=== PATIENT | male | born 1950 | race Caucasian/White ===

== ENCOUNTER 2016-06-16 09:21 | Inpatient (IN) ==
--- NOTE | 2016-06-13 20:52 | Discharge Summary ---
<Sade Cárdenas Jah - Last Filed: 06/15/16 21:17> - Discharge Diagnosis (1) Arthritis of knee, right Priority: Primary Status: Acute (2) BPH (benign prostatic hyperplasia) Priority: Secondary Status: Chronic Qualifiers: Prostatic enlargement morphology: unspecified morphology Lower urinary tract symptom presence: presence of symptoms unspecified Qualified Code(s): N40.0 - Benign prostatic hyperplasia without lower urinary tract symptoms - Discharge Medications Home Medications: ClonazePAM [Klonopin] 0.5 mg PO HS 06/15/15 [History] Dextroamphetamine/Amphetamine [Adderall Xr 30 mg Capsule] 30 mg PO DAILY [History] Finasteride [Proscar] 5 mg PO DAILY 06/15/15 [History] Gabapentin [Neurontin] 1,200 mg PO TID 06/15/15 [History] Meloxicam [Mobic] 15 mg PO DAILY PRN 06/15/15 [History] Oxybutynin Chloride [Ditropan Xl] 5 mg PO QPM 06/15/15 [History] Tamsulosin HCl [Flomax] 0.4 mg PO QPM 06/15/15 [History] Testosterone [Androgel] 3 appl TD DAILY 06/15/15 [History] Aspirin Enteric Coated [Aspirin EC] 325 mg PO DAILY #21 tablet.dr 06/15/16 [Rx] HYDROcodone/Acet 5/325 mg [[place] 5-325 mg] 1 - 2 tab PO Q6H PRN #40 tablet 06/15 [Rx] Escitalopram [Lexapro] 20 mg PO HS 06/16/16 [History] Allergies/Adverse Reactions: Allergies Oxycodone Adverse Reaction (Verified 06/16/16 11:04) Headache Primary care physician: Clarissa Heard - Patient Status Disposition: Transfer Inpatient Rehab Fac Condition: Good - Discharge Instructions Follow Up With: Clarissa Heard, TITLE CLERK [Primary Care Provider] - - Hospital Course Hospital course: Mr. De is a 65 year old male - Time Spent with Patient Total time spent providing and/or coordinating discharge services: <El Donovan - Last Filed: 06/18/16 06:52> Date of Encounter: 06/18/16 Time of Encounter: 06:52 - Discharge Diagnosis (1) Arthritis of knee, right Priority: Primary Status: Acute (2) BPH (benign prostatic hyperplasia) Priority: Secondary Status: Chronic Qualifiers: Prostatic enlargement morphology: unspecified morphology Lower urinary tract symptom presence: presence of symptoms unspecified Qualified Code(s): N40.0 - Benign prostatic hyperplasia without lower urinary tract symptoms Primary care physician: Clarissa Heard - Patient Status Functional capacity at discharge: uses cane/walker Overall status at discharge: patient is progressing back to baseline - Hospital Course Hospital course: Mr. De is a 65 year old male The patient had an uneventful postoperative course. They received antibiotics and physical therapy and were discharged in stable condition. There will follow -up in the office in 2 weeks. Aspirin DVT prophylaxis - Time Spent with Patient Total time spent providing and/or coordinating discharge services:
[2016-06-16] MEDS ORDERED: Albuterol 2.5 MG/3 ML NEBULIZER IH ONE (09:45)
[2016-06-16] MEDS ORDERED: Vancomycin 1,000 MG in D5% in Water 250 ML IVPB ONE (09:45)
[2016-06-16] MEDS ORDERED: Lidocaine 1% 20 ML MDV ID ONE (09:45)
[2016-06-16] MEDS: Ringers Solution, Lactated 1,000 ML IVC SCH ×2 (10:05→13:58)
[2016-06-16] MEDS ORDERED: Famotidine 20 MG/2 ML VIAL IVP ONE (10:11)
--- NOTE | 2016-06-16 10:17 | History & Physical Report ---
Date of Encounter: 06/16/16 Time of Encounter: 10:17 24 Hour HP Update - Instructions Instructions: If the History and Physical is less than 30 days old and was completed prior to A.M. admission and or procedure and has NOT been updated on calendar day of procedure please complete this update prior to performing procedure. - Update Patient reports changes in Medical Condition: No Changes in assessment/condition: No Changes in Medication: No Preop tests/diagnostics Reviewed: Yes Surgery Remains Indicated: Yes Consent for Planned Operative Procedure(s) Verified: Yes - Pre-Operative Checklist Preoperative Checklist Indicated: No Prophylactic Antibiotic Ordered: Yes Is VTE Prophylaxis Indicated?: Yes
--- NOTE | 2016-06-16 10:22 | Anesthesia Evaluation PreOp ---
Date of Encounter: 06/16/16 Time of Encounter: 10:20 - Past History Planned Operation: Rt TKA Cardiac History: Denies any Significant Hx Pulmonary History: Smoker WHARF TENDER History: Denies Any Significant HX Other Medical History: Other (Depression) Anesthesia History: No Prior Anesthetic Complications Alcohol Use: occasionally Drug use: marijuana Medications and Allergies Citalopram Hydrobromide [Celexa] 20 mg PO DAILY 06/15/15 [History] ClonazePAM [Klonopin] 0.25 mg PO HS 06/15/15 [History] Dextroamphetamine/Amphetamine [Adderall Xr 30 mg Capsule] 30 mg PO DAILY [History] Finasteride [Proscar] 5 mg PO DAILY 06/15/15 [History] Gabapentin [Neurontin] 600 mg PO TID 06/15/15 [History] Meloxicam [Mobic] 15 mg PO DAILY 06/15/15 [History] Oxybutynin Chloride [Ditropan Xl] 5 mg PO DAILY 06/15/15 [History] Tamsulosin HCl [Flomax] 0.4 mg PO DAILY 06/15/15 [History] Testosterone [Androgel] 3 appl TD DAILY 06/15/15 [History] Aspirin Enteric Coated [Aspirin EC] 325 mg PO DAILY #21 tablet. 06/15/16 [Rx] HYDROcodone/Acet 5/325 mg [[employer] 5-325 mg] 1 - 2 tab PO Q6H PRN #40 tablet 06/15 [Rx] Allergies Oxycodone Adverse Reaction (Verified 06/15/15 15:38) Headache - Meds/Allergy Pre-op Review Medications Reviewed: Yes Allergies Reviewed: Yes Beta Blockers on Current Med List: No Anesthesia Results - Labs Laboratory Tests 06/09/16 06/09/16 15:22 15:26 Hgb 16.2 Hct 45.3 Plt Count 229 Sodium 141 Potassium 4.3 BUN 11 Creatinine 0.80 Anesthesia Exam O2 Sat Height 1.75 m Height 1.75 m Height 1.75 m Weight 74.843 kg Weight 74.843 kg Weight 74.843 kg O2 Sat by Pulse Oximetry 94 O2 Sat by Pulse Oximetry 94 Vital Signs Temp Pulse Resp BP Pulse Ox 98 F 58 16 119/78 94 L 06/16/16 09:49 06/16/16 09:49 06/16/16 09:49 06/16/16 09:49 06/16/16 09:49 Height: 5'9 Weight: 165 lbs NPO (# of Hours): MN Pain Scale: 0 - HEENT Pupil (Motor): Pupils equal, EOMI Mallampati: II Teeth: Normal Oral Opening: Greater than 3 - WHARF TENDER LOC: Oriented WHARF TENDER Motor: Normal RUE, Normal LUE, Normal RLE, Normal LLE, Normal Face WHARF TENDER Sensory: Normal: RUE, LUE, RLE, LLE, Face - Cardiac Rhythm: Regular Murmur: None JVD: No Carotid Bruit: No - Pulmonary Breath Sounds: bilateral Clear Respiratory Effort: Symmetrical Anesthesia Assess/Plan ASA Score: 2 Modified Price Scale for Level of Consciousness: Cooperative, oriented, and tranquil Anesthetic Plan: General, Regional Monitoring Plan: Standard Monitors Recovery Plan: PACU (Discussed GA and RA, agrees to proceed)
[2016-06-16] MEDS ORDERED: *HR* Promethazine 25 MG/ML VIAL IVP PRN (10:29)
[2016-06-16] MEDS ORDERED: Ondansetron 4 MG/2 ML VIAL IVP ONE (10:29)
[2016-06-16] MEDS ORDERED: *HR* Rocuronium Bromide 50 MG/5 ML VIAL ONE (10:41)
[2016-06-16] MEDS ORDERED: Ondansetron 4 MG/2 ML VIAL ONE (10:41)
[2016-06-16] MEDS ORDERED: Lidocaine -MPF 2% 2 ML VIAL ONE (10:41)
[2016-06-16] MEDS ORDERED: Dexamethasone 4 MG/ML VIAL ONE (10:41)
[2016-06-16] MEDS ORDERED: *HR* Propofol 200 MG/20 ML VIAL IVP ONE (10:41)
[2016-06-16] MEDS ORDERED: Lidocaine -MPF 4% 5 ML AMPUL ONE (10:41)
[2016-06-16] MEDS ORDERED: *HR* Midazolam HCl 2 MG/2 ML VIAL ONE (10:41)
[2016-06-16] MEDS ORDERED: *HR* FentaNYL (PF) 100 MCG/2 ML VIAL ONE (10:41)
[2016-06-16] MEDS ORDERED: *HR* Succinylcholine 200 MG/10 ML VIAL IVP ONE (10:41)
[2016-06-16] MEDS ORDERED: Ketorolac 30 MG/ML VIAL ONE (10:46)
[2016-06-16] MEDS ORDERED: Tetracaine/PF 20 MG/2 ML AMPUL SPINA ONE (11:30)
--- NOTE | 2016-06-16 11:56 | Anesthesia Procedures ---
Date of Encounter: 06/16/16 Time of Encounter: 10:20 Procedures: Anesthesia - Nerve Block Procedure Date: 06/16/16 Time: 11:35 Pre-op Diagnosis: Rt Knee Arthropathy Surgical Procedure: Rt TKA Checklist: Correct Patient Identifier Correct side: Right Blood Thinner: No Monitor Applied: EKG, BP, Pulse Oximetry Supplemental Oxygen via Nasal Cannula (L/min): 2 Sedation: Versed (mg): 2 Sedation: Fentanyl (mcg): 50 Indication: Post Op Analgesia Pre-op Neuro Deficits: No Block Type: Femoral, Other (IPACK) Catheter placed: No Depth at skin (cm): 2 Sterile Technique: Yes Ultrasound used: Yes Anatomy identified: Yes Visual spread of Local: Yes Neuro Stimulation: Yes Nerve Stimulator Range: >0.4 - 0.6 mA Blood on Needle Aspiration: No Smooth Injection of Local: Yes Pain with Injection of Local: No Prep: Chlorhexadine Needle: 22 x 50 mm Stimuplex Local: 0.25% Bupivicaine w/Clonidine 20 mcg/cc, Tetracaine (20), Ropivacaine ( 0.5%) Volume (cc): 30 Number of Attempts: 1 Complications: None/effective block Vitals: Vital Signs/O2 Sat/Glucose, Most Current Temp Pulse Resp BP Pulse Ox 06/16/16 11:26 57 139/85 96 06/16/16 10:17 16 119/78 94 L 06/16/16 09:49 98 F 58 16 119/78 94 L
[2016-06-16] MEDS ORDERED: Bupivacaine/Clonidine Syringe 1 EACH SYRINGE ONE (12:28)
--- NOTE | 2016-06-16 12:43 | Orthopedic Operative Note ---
Date of procedure: 06/16/16 Pre-op diagnosis: Right knee arthritis Post-op diagnosis: same Procedure: Procedure: Right Total knee replacement Estimated blood loss: 200 cc Hardware: Arthrex Femur: 7 Tibia: 7 PS insert: 12 Patella: 40 Exam Under anesthesia: Varus alignment external rotation deformity loss. Loss of full extension 15 degrees Procedural Notes: Grade 4 arthritic changes medial compartment patellofemoral joint. Evidence of previous quadricep tendon repair with retained suture and some osteophytes proximally. Operative procedure: The patient was brought to the operating room and placed on the operating room table. After general anesthesia was administered the operative knee was examined. Findings were noted in the exam under anesthesia. The operative extremity was prepped and draped in sterile surgical fashion. The patient received IV antibiotics prior to skin incision. A standard midline incision was made centered over the patella. The incision was made through the skin and subcutaneous tissue. A medial parapatellar tendon approach was performed. Care was taken to preserve tissue along the medial aspect of the patella. And to protect the patella tendon. The deep MCL was released off the medial tibia. The infra patella fat pad was excised. Patient noted to have evidence of previous quadricep tendon repair with retained suture fragmentation of the proximal area patella. Small fragments were removed without disrupting the tendon. Knee was brought into flexion. Patient noted to have grade 4 arthritic changes medial compartment and patellofemoral joint. The entry hole was made for the intramedullary femoral guide. The guide was seated in 6 degrees of valgus. Anterior cut was made followed by the distal cut. The ACL the PCL the medial and the lateral menisci were excised. The tibia was subluxed forward. The entry hole was made for the intramedullary tibial guide. Guide was seated to resect 2 mm off the more abnormal side. The knee was brought into flexion the distal femur was sized 7. The femoral guide was seated , the anterior cut was made followed by the posterior condylar cut, followed by the chamfer cuts. The finishing guide was seated the box cut was made and the lug holes were drilled. The tibia was sized 7, the tibial tray was seated and prepared with the large drill followed by the fin cutter. Trial reduction revealed full extension no varus valgus instability with the appropriate 12 PS Usha. The patella was everted and cut was made at the level of the insertion of the quadriceps and patella tendon. The patella was sized 40 the guide was seated and the lug holes are drilled. Trial reduction revealed excellent patella tracking. All trial components were removed all bony surfaces were irrigated. The tibia was cemented first followed by the femur. The 12 PS Usha was seated and the knee was brought into full extension. The patella was cemented and held in place with the patellar holding clamp. After the cement had hardened, the knee sat for 2 minutes with a Betadine saline solution. The knee was then irrigated out with 2 L of pulse irrigation. The extensor mechanism was closed with #2 FiberWire suture and #2 PDS suture. The subcutaneous tissue was then irrigated and closed deep with #1 PDS suture superficially with 0 PDS suture and skin was closed with skin moncho. The patient was then placed in a sterile dressing and a postoperative brace extubated and transferred to recovery room in stable condition. Anesthesia: GETA Surgeon: El Donovan Condition: stable Disposition: PACU
[2016-06-16] MEDS: *HR* HYDROmorphone (PF) 1 MG/ML SYRINGE IVP PRN ×2 (13:32→13:56)
[2016-06-16 13:46] LABS: Hematocrit 41.5 % (37.5-50.1)
[2016-06-16 13:47] LABS: Hemoglobin 14.3 g/dL (12.9-16.9)
--- NOTE | 2016-06-16 14:10 | Anesthesia Evaluation Post Op ---
Date of Encounter: 06/16/16 Time of Encounter: 14:10 - Vital Signs Vital Signs: Vital Signs/O2 Sat/Glucose, Most Current Temp Pulse Resp BP Pulse Ox 06/16/16 13:56 67 16 100/74 98 06/16/16 13:46 97.4 F L 69 16 88/61 97 06/16/16 13:36 68 16 100/64 100 06/16/16 13:26 72 16 112/82 100 06/16/16 13:16 98.4 F 78 16 76/54 100 06/16/16 11:26 57 139/85 96 06/16/16 10:17 16 119/78 94 L - Lungs Lungs: Clear Ascult./Percussion - Airway Airway: Non-obstructed - Cardiovascular Regular Rate - Mental Status Mental Status: Alert & Oriented, Answers Appropriately - Pain Pain Scale: 0 - Nausea Vomiting Nausea Vomiting: Not Present - Hydration Hydration: Ice chips, Has not voided - Discharge PostOp Status: Transfer Patient to floor
[2016-06-16] MEDS ORDERED: Sennosides 8.6 MG TABLET PO PRN (14:35)
[2016-06-16] MEDS ORDERED: Ondansetron 4 MG/2 ML VIAL IVP PRN (14:35)
[2016-06-16] MEDS ORDERED: Naloxone 0.4 MG/ML INJ IVP PRN (14:35)
[2016-06-16] MEDS ORDERED: Ringers Solution, Lactated 1,000 ML IVC SCH (14:35)
[2016-06-16] MEDS ORDERED: Acetaminophen 325 MG TABLET PO PRN (14:35)
[2016-06-16] MEDS ORDERED: Temazepam 15 MG CAPSULE PO PRN (14:35)
[2016-06-16] MEDS ORDERED: MOM Conc 10 ML UD.LIQ PO PRN (14:35)
[2016-06-16] MEDS: ceFAZolin 2,000 MG in D5% in Water 100 ML IVPB SCH ×2 (16:09→23:04)
[2016-06-16] MEDS: Gabapentin 400 MG CAPSULE PO SCH ×2 (16:09→20:42)
[2016-06-16] MEDS ORDERED: *HR* Enoxaparin 30 MG/0.3 ML SYRINGE SQ SCH (18:00)
[2016-06-16] MEDS: *HR* Enoxaparin 30 MG/0.3 ML SYRINGE SQ SCH (18:18)
[2016-06-16] MEDS: clonazePAM 0.5 MG TABLET PO SCH (20:42)
[2016-06-16] MEDS: *HR* HYDROcodone/Acet 5/325 mg TABLET PO PRN (21:01)
[2016-06-17] MEDS: *HR* Enoxaparin 30 MG/0.3 ML SYRINGE SQ SCH ×3 (05:24→18:28)
[2016-06-17] MEDS: *HR* HYDROcodone/Acet 5/325 mg TABLET PO PRN ×4 (05:24→18:27)
--- NOTE | 2016-06-17 06:39 | Orthopedics Progress Note ---
Date of Encounter: 06/17/16 Time of Encounter: 06:39 - Assessment and Plan (1) Arthritis of knee, right Current Visit: Yes Status: Acute (2) BPH (benign prostatic hyperplasia) Current Visit: Yes Status: Chronic Qualifiers: Prostatic enlargement morphology: unspecified morphology Lower urinary tract symptom presence: presence of symptoms unspecified Qualified Code(s): N40.0 - Benign prostatic hyperplasia without lower urinary tract symptoms Subjective Interval history: pt doing well no complaints afvss operative extremity NVI dressing c/d/i calves nt continue postop care Hb 14 Objective Vital signs: Vital Signs Temp Pulse Resp BP Pulse Ox 06/17/16 04:00 99.0 F 86 17 114/63 96 06/17/16 00:00 99.2 F 80 16 81/52 95 06/16/16 20:25 98.0 F 65 17 121/66 98 06/16/16 17:42 66 18 120/69 98 06/16/16 17:25 98.0 F 68 17 125/72 97 06/16/16 16:35 97.9 F 65 18 118/68 96 06/16/16 15:36 97.6 F 66 18 120/69 98 06/16/16 15:01 97.6 F 65 17 120/73 98 06/16/16 14:30 97.7 F 64 17 124/66 98 06/16/16 14:06 97.4 F L 65 16 121/74 98 06/16/16 13:56 67 16 100/74 98 06/16/16 13:46 97.4 F L 69 16 88/61 97 06/16/16 13:36 68 16 100/64 100 06/16/16 13:26 72 16 112/82 100 06/16/16 13:16 98.4 F 78 16 76/54 100 06/16/16 11:26 57 139/85 96 06/16/16 10:17 16 119/78 94 L 06/16/16 09:49 98 F 58 16 119/78 94 L Intake and Output 06/16/16 06/16/16 06/17/16 15:59 23:59 07:59 Intake Total 1250 / 1250 100 / 100 100 / 100 Output Total 200 / 200 325 / 325 325 / 325 Balance 1050 / 1050 -225 / -225 -225 / -225 Intake: IV Fluids 1250 / 1250 100 / 100 100 / 100 Lactated Ringers 1,000 ML 1000 / 1000 @ 75 mls/hr IVC .[id number] [facility] Rx#:[id number] Ancef 2,000 MG In 100 / 100 100 / 100 Dextrose 5% 100 ML @ 200 mls/hr IVPB Q8HR [facility] Rx#: [id number] Vancocin 1,000 MG In 250 / 250 Dextrose 5% 250 ML @ 167 mls/hr IVPB ONCE ONE Rx#: [id number] Output: Urine 325 / 325 325 / 325 Estimated Blood Loss 200 / 200 Other: Weight 74.843 kg - Labs CBC & BMP: 06/16/16 13:33 - VTE Documentation of Mechanical Device: Venous foot pump, device Consult Discharge Plan - Plan Referrals: Clarissa Heard, MAR[employer] OPERATIONS COORDINATOR [Primary Care Provider] -
[2016-06-17 06:49] LABS: Hemoglobin 12.5 g/dL (12.9-16.9)
[2016-06-17 06:59] LABS: BUN/Creatinine Ratio 14 (6-26); Blood Urea Nitrogen 11 mg/dL (8-26); Calcium 7.7 mg/dL (8.6-10.8); Carbon Dioxide 20 mEq/L (19-29); Chloride 108 mEq/L (98-109); Glucose 116 mg/dL (70-99); Osmolality,Calculated 286 (280-300); Potassium 3.5 mEq/L (3.5-4.5); Sodium 138 mEq/L (136-145); eGFR For African Americans > 60 (> 60); eGFR For Non-African Americans > 60 (> 60)
[2016-06-17] MEDS: TESTOSTERONE APPL TP SCH (09:02)
[2016-06-17] MEDS: Finasteride 5 MG TABLET PO SCH (09:02)
[2016-06-17] MEDS: Gabapentin 400 MG CAPSULE PO SCH ×3 (09:02→19:59)
[2016-06-17] MEDS: (Dextroamphetamine/Amphetamine [Adderall Xr 30 Mg Cap PO SCH (09:02)
[2016-06-17] MEDS: clonazePAM 0.5 MG TABLET PO SCH (19:59)
[2016-06-17] MEDS: *HR* HYDROmorphone (PF) 1 MG/ML SYRINGE IVP PRN (20:00)
[2016-06-18] MEDS: *HR* HYDROcodone/Acet 5/325 mg TABLET PO PRN ×2 (00:29→06:17)
[2016-06-18] MEDS: *HR* HYDROmorphone (PF) 1 MG/ML SYRINGE IVP PRN ×2 (01:22→09:26)
[2016-06-18] MEDS: *HR* Enoxaparin 30 MG/0.3 ML SYRINGE SQ SCH (06:15)
--- NOTE | 2016-06-18 06:53 | Orthopedics Progress Note ---
Date of Encounter: 06/18/16 Time of Encounter: 06:52 - Assessment and Plan (1) Arthritis of knee, right Current Visit: Yes Status: Acute (2) BPH (benign prostatic hyperplasia) Current Visit: Yes Status: Chronic Qualifiers: Prostatic enlargement morphology: unspecified morphology Lower urinary tract symptom presence: presence of symptoms unspecified Qualified Code(s): N40.0 - Benign prostatic hyperplasia without lower urinary tract symptoms Subjective Interval history: pt doing well no complaints afvss operative extremity NVI dressing c/d/i calves nt continue postop care hematocrit 36 discharged today Objective Vital signs: Vital Signs Temp Pulse Resp BP Pulse Ox 06/18/16 06:23 98.1 F 70 14 133/85 96 06/18/16 01:00 99.4 F 91 17 117/67 92 L 06/17/16 19:58 98.1 F 88 18 121/81 94 L 06/17/16 14:56 98.1 F 71 14 135/76 96 06/17/16 11:14 98.2 F 69 18 117/65 96 06/17/16 10:57 98.5 F 81 18 115/72 95 06/17/16 07:09 98.1 F 70 16 102/54 92 L Intake and Output 06/17/16 06/17/16 06/18/16 15:59 23:59 07:59 Intake Total 480 / 480 400 / 400 725 / 725 Output Total 350 / 350 750 / 750 Balance 480 / 480 50 / 50 -25 / -25 Intake: Oral 480 / 480 400 / 400 725 / 725 Output: Urine 350 / 350 750 / 750 Other: Meal Breakfast Percent of Meal Consumed 100% Blood Glucose* 184 - Labs CBC & BMP: 06/17/16 06:02 06/17/16 06:02 Labs: Abnormal lab results Hgb 12.5 g/dL (12.9-16.9) L D 06/17/16 06:02 Hct 36.0 % (37.5-50.1) L 06/17/16 06:02 Glucose 116 mg/dL (70-99) H 06/17/16 06:02 Calcium 7.7 mg/dL (8.6-10.8) L 06/17/16 06:02 - VTE Documentation of Mechanical Device: Venous foot pump, device Consult Discharge Plan - Plan Referrals: Clarissa Heard DORIS [Primary Care Provider] -
[2016-06-18] MEDS: Gabapentin 400 MG CAPSULE PO SCH (09:27)
[2016-06-18] MEDS: TESTOSTERONE APPL TP SCH (09:27)
[2016-06-18] MEDS: Finasteride 5 MG TABLET PO SCH (09:27)
[2016-06-18] MEDS: (Dextroamphetamine/Amphetamine [Adderall Xr 30 Mg Cap PO SCH (09:27)
[2016-06-18 11:39] VITALS: BP 127/64
== END 2016-06-18 12:30 | DRG 470 ==
LOC: SAMDAY 09:21 → 3NENU 14:35
PROVIDERS: ADMIT Orthopaedic Surgery; ATTEND Orthopaedic Surgery

== ENCOUNTER 2019-12-26 09:08 | Inpatient (IN) ==
[2019-12-26 10:06] LABS: Hemoglobin 13.1 g/dL (12.9-16.9); Mean Corpuscular HGB Conc 35.4 g/dL (31.6-35.5); Mean Corpuscular Volume 87.7 fL (83.0-100.0); Platelet Count 228 K/mcL (140-400); Red Blood Count 4.22 M/mcL (4.19-5.50); Red Cell Distribution Width 13.2 % (11.5-14.5); White Blood Count 3.6 K/mcL (4.3-11.1)
[2019-12-26 10:20] LABS: Bacteria,Urine Few per hpf (None-Few); Bilirubin,Urine Negative (Negative); Blood,Urine Negative (Negative); Clarity,Urine Clear (Clear); Color,Urine Yellow (Yellow); Glucose,Urine (UA) Normal (Normal); Ketones,Urine 60 mg/dL (Negative); Leukocyte Esterase,Urine Negative (Negative); Mucus,Urine Few per lpf (None-Few); Nitrite,Urine Negative (Negative); PH,Urine 6.5 pH Units (5.0-8.0); Protein,Urine 50 mg/dL (Neg-Trace); RBC,Urine 0-3 per hpf (0-3); Specific Gravity,Urine 1.023 (1.010-1.025); Squamous Epithelial Cell,Urine Few per hpf (None-Few)
[2019-12-26 10:27] LABS: INR 1.3; Prothrombin Time 14.2 Seconds (9.4-12.1)
[2019-12-26 10:28] LABS: Alanine Aminotransferase 13 Units/L (7-52); Albumin 3.3 g/dL (3.5-5.7); Albumin/Globulin Ratio 1.4 (1.1-2.2); Alkaline Phosphatase 47 Units/L (34-104); Aspartate Amino Transferase 23 Units/L (13-39); BUN/Creatinine Ratio 19 (6-26); Bilirubin,Direct 0.1 mg/dL (0.0-0.2); Bilirubin,Indirect 0.5 mg/dL (0.0-1.0); Bilirubin,Total 0.6 mg/dL (0.3-1.0); Blood Urea Nitrogen 10 mg/dL (8-23); C-Reactive Protein 165 mg/L (Less than 10); Carbon Dioxide 24 mEq/L (23-29); Chloride 97 mEq/L (98-107); Globulin 2.4 g/dL (2.4-3.5); Glucose 89 mg/dL (70-105); Osmolality,Calculated 275 (280-300); Potassium 3.2 mEq/L (3.5-5.1); Sodium 133 mEq/L (136-145); Total Protein 5.7 g/dL (6.4-8.9); Troponin I < 0.03 ng/mL (< 0.04); eGFR For African Americans > 60 (> 60); eGFR For Non-African Americans > 60 (> 60)
[2019-12-26 10:30] LABS: Activated Partial Thrombo Time 30.2 Seconds (26.0-36.0)
[2019-12-26 10:33] LABS: Lymphocytes # 0.6 K/mcL (0.6-4.6); Monocytes # 0.5 K/mcL (0.0-1.3); Neutrophils # 2.5 K/mcL (1.6-8.9)
[2019-12-26 10:34] LABS: Platelet Estimate Normal (Normal); Reactive Lymphocytes Present (Not Present)
[2019-12-26] MEDS ORDERED: levoFLOXacin 750 MG/150 ML 750 MG/150 ML BAG IVPB ONE (11:07)
[2019-12-26] MEDS ORDERED: Piperacillin/Tazobactam 3.375 GM in 0.9 % Sodium Chloride Mini Bag 100 ML IVPB ONE (11:07)
[2019-12-26 11:39] LABS: Adenovirus Not Detected (Not Detect); Bordetella Pertussis Not Detected (Not Detect); Chlamydophila pneumoniae Not Detected (Not Detect); Coronavirus 229E Not Detected (Not Detect); Coronavirus HKU1 Not Detected (Not Detect); Coronavirus NL63 Not Detected (Not Detect); Coronavirus OC43 Not Detected (Not Detect); Human Metapneumovirus Not Detected (Not Detect); Human Rhinovirus/Enterovirus Not Detected (Not Detect); Influenza A Subtype 2009 H1 Not Detected (Not Detect); Influenza B Not Detected (Not Detect); Mycoplasma pneumoniae Not Detected (Not Detect); Parainfluenza Virus 1 Not Detected (Not Detect); Parainfluenza Virus 2 Not Detected (Not Detect); Parainfluenza Virus 3 Not Detected (Not Detect); Parainfluenza Virus 4 Not Detected (Not Detect); Respiratory Syncytial Virus Not Detected (Not Detect)
[2019-12-26 11:46] LABS: SARS-CoV-2 DETECTED (Not Detect)
[2019-12-26] MEDS ORDERED: Vancomycin 1,250 MG/262.5 ML IV.SOLN IVPB ONE (12:00)
[2019-12-26] MEDS ORDERED: Naloxone 0.4 MG/ML INJ IVP PRN (12:09)
[2019-12-26] MEDS ORDERED: Ondansetron 4 MG/2 ML VIAL IVP PRN (12:09)
[2019-12-26] MEDS ORDERED: Dexamethasone 4 MG/ML VIAL IVP SCH (12:15)
[2019-12-26] MEDS ORDERED: *HR* HYDROcodone/Acet 5/325 mg TABLET PO ONE (12:57)
[2019-12-26] MEDS: *HR* Heparin 5,000 UNIT/ML VIAL SQ SCH (17:07)
[2019-12-27] MEDS ORDERED: carBAMazepine 200 MG TABLET PO ONE
[2019-12-27] MEDS ORDERED: Gabapentin 300 MG CAPSULE PO ONE (00:06)
[2019-12-27] MEDS ORDERED: Vancomycin 1,250 MG/262.5 ML IV.SOLN IVPB SCH (01:00)
[2019-12-27] MEDS: *HR* HYDROcodone/Acet 5/325 mg TABLET PO PRN ×3 (05:10→23:11)
[2019-12-27] MEDS: *HR* Heparin 5,000 UNIT/ML VIAL SQ SCH ×2 (05:11→16:28)
[2019-12-27 06:42] LABS: Basophils % 0.3 %; Hematocrit 36.9 % (37.5-50.1); Hemoglobin 12.6 g/dL (12.9-16.9); Immature Granulocytes % 1.2 % (0-4); Lymphocytes # 0.9 K/mcL (0.6-4.6); Lymphocytes % 26.2 %; Mean Corpuscular HGB Conc 34.1 g/dL (31.6-35.5); Mean Corpuscular Hemoglobin 30.7 pg (28.0-33.3); Mean Corpuscular Volume 89.8 fL (83.0-100.0); Mean Platelet Volume 9.3 fL (9.4-12.4); Monocytes # 0.7 K/mcL (0.0-1.3); Monocytes % 19.7 %; Neutrophils # 1.8 K/mcL (1.6-8.9); Platelet Count 267 K/mcL (140-400); Red Blood Count 4.11 M/mcL (4.19-5.50); Red Cell Distribution Width 12.9 % (11.5-14.5); Segmented Neutrophils % 52.6 %; White Blood Count 3.4 K/mcL (4.3-11.1)
[2019-12-27 07:03] LABS: Alanine Aminotransferase 11 Units/L (7-52); Albumin 3.1 g/dL (3.5-5.7); Albumin/Globulin Ratio 1.2 (1.1-2.2); Alkaline Phosphatase 46 Units/L (34-104); Aspartate Amino Transferase 23 Units/L (13-39); BUN/Creatinine Ratio 17 (6-26); Bilirubin,Total 0.5 mg/dL (0.3-1.0); Blood Urea Nitrogen 10 mg/dL (8-23); Calcium 7.9 mg/dL (8.6-10.3); Carbon Dioxide 24 mEq/L (23-29); Chloride 98 mEq/L (98-107); Globulin 2.6 g/dL (2.4-3.5); Glucose 83 mg/dL (70-105); Osmolality,Calculated 274 (280-300); Potassium 3.3 mEq/L (3.5-5.1); Sodium 133 mEq/L (136-145); Total Protein 5.7 g/dL (6.4-8.9); eGFR For African Americans > 60 (> 60); eGFR For Non-African Americans > 60 (> 60)
[2019-12-27] MEDS ORDERED: levoFLOXacin 750 MG/150 ML 750 MG/150 ML BAG IVPB SCH (09:00)
[2019-12-27] MEDS: ADDERALL 30 MG PO SCH (09:28)
[2019-12-27] MEDS: Gabapentin 400 MG CAPSULE PO SCH ×3 (09:28→20:27)
[2019-12-27] MEDS: *HR* HYDROcodone/Acet 10/325 mg TABLET PO PRN (10:30)
[2019-12-27] MEDS: Dexamethasone 4 MG/ML VIAL IVP SCH (11:32)
[2019-12-27] MEDS: Piperacillin/Tazobactam 3.375 GM in 0.9 % Sodium Chloride Mini Bag 100 ML IVPB SCH ×2 (16:28→23:10)
[2019-12-27] MEDS: clonazePAM 0.5 MG TABLET PO SCH (20:26)
[2019-12-27] MEDS: CarBAMazepine XR (12 hr) 100 MG TAB PO SCH (20:26)
[2019-12-28 02:41] LABS: Basophils % 0.7 %; Eosinophils % 0.2 %; Hematocrit 40.6 % (37.5-50.1); Hemoglobin 13.7 g/dL (12.9-16.9); Lymphocytes # 1.2 K/mcL (0.6-4.6); Mean Corpuscular HGB Conc 33.7 g/dL (31.6-35.5); Mean Corpuscular Hemoglobin 30.4 pg (28.0-33.3); Mean Corpuscular Volume 90.2 fL (83.0-100.0); Mean Platelet Volume 8.8 fL (9.4-12.4); Monocytes # 0.8 K/mcL (0.0-1.3); Monocytes % 17.4 %; Neutrophils # 2.5 K/mcL (1.6-8.9); Platelet Count 268 K/mcL (140-400); Red Cell Distribution Width 13.2 % (11.5-14.5); Segmented Neutrophils % 54.7 %; White Blood Count 4.6 K/mcL (4.3-11.1)
[2019-12-28 03:03] LABS: BUN/Creatinine Ratio 22 (6-26); Blood Urea Nitrogen 14 mg/dL (8-23); Calcium 8.2 mg/dL (8.6-10.3); Carbon Dioxide 22 mEq/L (23-29); Chloride 102 mEq/L (98-107); Glucose 97 mg/dL (70-105); Osmolality,Calculated 282 (280-300); Potassium 3.9 mEq/L (3.5-5.1); Sodium 136 mEq/L (136-145); eGFR For African Americans > 60 (> 60); eGFR For Non-African Americans > 60 (> 60)
[2019-12-28] MEDS ORDERED: 0.9 % Sodium Chloride 250 ML ONE (05:32)
[2019-12-28] MEDS: *HR* HYDROcodone/Acet 5/325 mg TABLET PO PRN (05:39)
[2019-12-28] MEDS: *HR* Heparin 5,000 UNIT/ML VIAL SQ SCH ×2 (05:40→18:16)
[2019-12-28] MEDS: ADDERALL 30 MG PO SCH (08:03)
[2019-12-28] MEDS: Gabapentin 400 MG CAPSULE PO SCH ×3 (09:14→20:55)
[2019-12-28] MEDS: Piperacillin/Tazobactam 3.375 GM in 0.9 % Sodium Chloride Mini Bag 100 ML IVPB SCH (09:14)
[2019-12-28] MEDS: Dexamethasone 4 MG/ML VIAL IVP SCH (09:14)
[2019-12-28] MEDS ORDERED: Morphine Sulfate 2 MG/ML SYRINGE IVP ONE (11:10)
[2019-12-28] MEDS ORDERED: cefTRIAXone 1,000 MG in 0.9 % Sodium Chloride Mini Bag 100 ML IVPB ONE ×2 (12:24→15:00)
[2019-12-28] MEDS: *HR* HYDROcodone/Acet 10/325 mg TABLET PO PRN (18:16)
[2019-12-28] MEDS: CarBAMazepine XR (12 hr) 100 MG TAB PO SCH (20:56)
[2019-12-28] MEDS: clonazePAM 0.5 MG TABLET PO SCH (20:56)
[2019-12-29] MEDS: *HR* HYDROcodone/Acet 10/325 mg TABLET PO PRN ×2 (01:26→09:55)
[2019-12-29] MEDS ORDERED: 0.9 % Sodium Chloride 250 ML ONE (01:44)
[2019-12-29] MEDS: *HR* Heparin 5,000 UNIT/ML VIAL SQ SCH ×2 (04:39→17:35)
[2019-12-29 05:42] LABS: Hematocrit 35.3 % (37.5-50.1); Mean Corpuscular HGB Conc 33.7 g/dL (31.6-35.5); Mean Corpuscular Hemoglobin 30.7 pg (28.0-33.3); Mean Platelet Volume 8.9 fL (9.4-12.4); Platelet Count 314 K/mcL (140-400); Red Blood Count 3.88 M/mcL (4.19-5.50); Red Cell Distribution Width 13.2 % (11.5-14.5); White Blood Count 4.7 K/mcL (4.3-11.1)
[2019-12-29 05:43] LABS: Hemoglobin 11.9 g/dL (12.9-16.9)
[2019-12-29 06:07] LABS: BUN/Creatinine Ratio 20 (6-26); Blood Urea Nitrogen 11 mg/dL (8-23); Calcium 8.2 mg/dL (8.6-10.3); Carbon Dioxide 25 mEq/L (23-29); Chloride 100 mEq/L (98-107); Glucose 90 mg/dL (70-105); Magnesium 1.7 mg/dL (1.6-2.6); Osmolality,Calculated 277 (280-300); Phosphorous 2.9 mg/dL (2.7-4.5); Potassium 3.6 mEq/L (3.5-5.1); Sodium 134 mEq/L (136-145); eGFR For African Americans > 60 (> 60); eGFR For Non-African Americans > 60 (> 60)
[2019-12-29 09:21] LABS: C-Reactive Protein 98 mg/L (Less than 10)
[2019-12-29] MEDS: Dexamethasone 4 MG/ML VIAL IVP SCH (09:54)
[2019-12-29] MEDS: Gabapentin 400 MG CAPSULE PO SCH ×3 (09:55→19:34)
[2019-12-29] MEDS: levoFLOXacin 750 MG TABLET PO SCH (09:55)
[2019-12-29] MEDS: Ipratropium 1 PUFF INHALER IH SCH ×3 (09:59→22:06)
[2019-12-29] MEDS: ADDERALL 30 MG PO SCH (10:00)
[2019-12-29] MEDS ORDERED: cefTRIAXone 1,000 MG in 0.9 % Sodium Chloride Mini Bag 100 ML IVPB SCH (12:00)
[2019-12-29 12:28] LABS: Hematocrit 37.4 % (37.5-50.1); Hemoglobin 12.7 g/dL (12.9-16.9)
[2019-12-29] MEDS: *HR* HYDROcodone/Acet 5/325 mg TABLET PO PRN (15:24)
[2019-12-29] MEDS: CarBAMazepine XR (12 hr) 100 MG TAB PO SCH (19:34)
[2019-12-29] MEDS: clonazePAM 0.5 MG TABLET PO SCH (19:35)
[2019-12-30] MEDS: Acetaminophen 325 MG TABLET PO PRN ×2 (00:19→15:27)
[2019-12-30] MEDS: *HR* HYDROcodone/Acet 10/325 mg TABLET PO PRN ×2 (03:30→17:32)
[2019-12-30] MEDS: Ipratropium 1 PUFF INHALER IH SCH ×4 (03:50→21:30)
[2019-12-30] MEDS ORDERED: 0.9 % Sodium Chloride 250 ML ONE (04:13)
[2019-12-30 06:33] LABS: Hematocrit 37.2 % (37.5-50.1); Hemoglobin 12.4 g/dL (12.9-16.9); Mean Corpuscular HGB Conc 33.3 g/dL (31.6-35.5); Mean Corpuscular Hemoglobin 30.8 pg (28.0-33.3); Mean Corpuscular Volume 92.5 fL (83.0-100.0); Platelet Count 338 K/mcL (140-400); Red Blood Count 4.02 M/mcL (4.19-5.50); Red Cell Distribution Width 13.1 % (11.5-14.5); White Blood Count 5.1 K/mcL (4.3-11.1)
[2019-12-30 06:51] LABS: BUN/Creatinine Ratio 20 (6-26); Blood Urea Nitrogen 12 mg/dL (8-23); Calcium 8.6 mg/dL (8.6-10.3); Carbon Dioxide 26 mEq/L (23-29); Chloride 101 mEq/L (98-107); Glucose 95 mg/dL (70-105); Osmolality,Calculated 282 (280-300); Potassium 3.7 mEq/L (3.5-5.1); Sodium 136 mEq/L (136-145); eGFR For African Americans > 60 (> 60); eGFR For Non-African Americans > 60 (> 60)
[2019-12-30] MEDS: *HR* Heparin 5,000 UNIT/ML VIAL SQ SCH (06:53)
[2019-12-30] MEDS: Dexamethasone 4 MG/ML VIAL IVP SCH (10:10)
[2019-12-30] MEDS: *HR* HYDROcodone/Acet 5/325 mg TABLET PO PRN (10:11)
[2019-12-30] MEDS: levoFLOXacin 750 MG TABLET PO SCH (10:11)
[2019-12-30] MEDS: Gabapentin 400 MG CAPSULE PO SCH ×3 (10:11→20:33)
[2019-12-30] MEDS: ADDERALL 30 MG PO SCH (12:22)
[2019-12-30] MEDS ORDERED: Furosemide 20 MG/2 ML VIAL IVP ONE (15:03)
[2019-12-30] MEDS: clonazePAM 0.5 MG TABLET PO SCH (20:32)
[2019-12-30] MEDS: CarBAMazepine XR (12 hr) 100 MG TAB PO SCH (20:33)
[2019-12-31 01:15] LABS: Hematocrit 37.1 % (37.5-50.1); Hemoglobin 12.7 g/dL (12.9-16.9); Mean Corpuscular HGB Conc 34.2 g/dL (31.6-35.5); Mean Corpuscular Hemoglobin 31.2 pg (28.0-33.3); Mean Corpuscular Volume 91.2 fL (83.0-100.0); Platelet Count 359 K/mcL (140-400); Red Blood Count 4.07 M/mcL (4.19-5.50); Red Cell Distribution Width 13.1 % (11.5-14.5); White Blood Count 4.9 K/mcL (4.3-11.1)
[2019-12-31 01:55] LABS: BUN/Creatinine Ratio 23 (6-26); Blood Urea Nitrogen 12 mg/dL (8-23); C-Reactive Protein 133 mg/L (Less than 10); Calcium 8.5 mg/dL (8.6-10.3); Carbon Dioxide 22 mEq/L (23-29); Chloride 99 mEq/L (98-107); Ferritin 557 ng/mL (20-250); Glucose 97 mg/dL (70-105); Lactate Dehydrogenase 343 Units/L (140-271); Magnesium 2.1 mg/dL (1.6-2.6); Osmolality,Calculated 276 (280-300); Phosphorous 3.1 mg/dL (2.7-4.5); Sodium 133 mEq/L (136-145); eGFR For African Americans > 60 (> 60); eGFR For Non-African Americans > 60 (> 60)
[2019-12-31] MEDS: Ipratropium 1 PUFF INHALER IH SCH ×4 (03:36→21:48)
[2019-12-31] MEDS: *HR* HYDROcodone/Acet 10/325 mg TABLET PO PRN (04:32)
[2019-12-31] MEDS: *HR* HYDROcodone/Acet 5/325 mg TABLET PO PRN ×2 (07:22→15:23)
[2019-12-31] MEDS: levoFLOXacin 750 MG TABLET PO SCH (08:34)
[2019-12-31] MEDS: Dexamethasone 4 MG/ML VIAL IVP SCH (08:34)
[2019-12-31] MEDS: ADDERALL 30 MG PO SCH (08:34)
[2019-12-31] MEDS: Gabapentin 400 MG CAPSULE PO SCH ×3 (08:34→21:32)
[2019-12-31] MEDS: *HR* Enoxaparin 40 MG/0.4 ML SYRINGE SQ SCH (18:06)
[2019-12-31] MEDS: CarBAMazepine XR (12 hr) 100 MG TAB PO SCH (21:32)
[2019-12-31] MEDS: clonazePAM 0.5 MG TABLET PO SCH (21:33)
[2020-01-01] MEDS: Ipratropium 1 PUFF INHALER IH SCH ×4 (03:16→21:48)
[2020-01-01] MEDS: *HR* Enoxaparin 40 MG/0.4 ML SYRINGE SQ SCH (04:44)
[2020-01-01 05:57] LABS: Hematocrit 36.9 % (37.5-50.1); Hemoglobin 12.6 g/dL (12.9-16.9); Mean Corpuscular HGB Conc 34.1 g/dL (31.6-35.5); Mean Corpuscular Hemoglobin 31.5 pg (28.0-33.3); Mean Corpuscular Volume 92.3 fL (83.0-100.0); Mean Platelet Volume 9.2 fL (9.4-12.4); Platelet Count 415 K/mcL (140-400); Red Cell Distribution Width 13.1 % (11.5-14.5); White Blood Count 6.1 K/mcL (4.3-11.1)
[2020-01-01 06:15] LABS: BUN/Creatinine Ratio 22 (6-26); Blood Urea Nitrogen 13 mg/dL (8-23); Calcium 8.9 mg/dL (8.6-10.3); Carbon Dioxide 26 mEq/L (23-29); Chloride 101 mEq/L (98-107); Glucose 92 mg/dL (70-105); Osmolality,Calculated 280 (280-300); Phosphorous 3.1 mg/dL (2.7-4.5); Potassium 3.7 mEq/L (3.5-5.1); Sodium 135 mEq/L (136-145); eGFR For African Americans > 60 (> 60); eGFR For Non-African Americans > 60 (> 60)
[2020-01-01] MEDS: Dexamethasone 4 MG/ML VIAL IVP SCH (10:02)
[2020-01-01] MEDS: Gabapentin 400 MG CAPSULE PO SCH ×3 (10:02→20:03)
[2020-01-01] MEDS: levoFLOXacin 750 MG TABLET PO SCH (10:02)
[2020-01-01] MEDS: *HR* HYDROcodone/Acet 5/325 mg TABLET PO PRN ×2 (10:04→18:56)
[2020-01-01] MEDS: ADDERALL 30 MG PO SCH (10:56)
[2020-01-01] MEDS: CarBAMazepine XR (12 hr) 100 MG TAB PO SCH (20:03)
[2020-01-01] MEDS: clonazePAM 0.5 MG TABLET PO SCH (20:03)
[2020-01-02] MEDS: Ipratropium 1 PUFF INHALER IH SCH ×4 (03:34→21:23)
[2020-01-02] MEDS: *HR* Enoxaparin 40 MG/0.4 ML SYRINGE SQ SCH (05:59)
[2020-01-02] MEDS: *HR* HYDROcodone/Acet 5/325 mg TABLET PO PRN ×2 (07:02→15:32)
[2020-01-02] MEDS: Gabapentin 400 MG CAPSULE PO SCH ×3 (07:58→19:29)
[2020-01-02] MEDS: Dexamethasone 4 MG/ML VIAL IVP SCH (07:58)
[2020-01-02] MEDS: levoFLOXacin 750 MG TABLET PO SCH (07:58)
[2020-01-02] MEDS: ADDERALL 30 MG PO SCH (08:16)
[2020-01-02] MEDS ORDERED: Morphine Sulfate 2 MG/ML SYRINGE IVP ONE (09:14)
[2020-01-02] MEDS: clonazePAM 0.5 MG TABLET PO SCH (19:29)
[2020-01-02] MEDS: CarBAMazepine XR (12 hr) 100 MG TAB PO SCH (19:29)
[2020-01-02] MEDS: Acetaminophen 325 MG TABLET PO PRN (20:25)
[2020-01-02] MEDS: *HR* HYDROcodone/Acet 10/325 mg TABLET PO PRN (21:12)
[2020-01-03] MEDS: Ipratropium 1 PUFF INHALER IH SCH ×4 (03:27→21:32)
[2020-01-03] MEDS: *HR* Enoxaparin 40 MG/0.4 ML SYRINGE SQ SCH (05:13)
[2020-01-03] MEDS: *HR* HYDROcodone/Acet 10/325 mg TABLET PO PRN ×2 (05:14→11:45)
[2020-01-03 05:49] LABS: Hematocrit 39.5 % (37.5-50.1); Hemoglobin 13.3 g/dL (12.9-16.9); Mean Corpuscular HGB Conc 33.7 g/dL (31.6-35.5); Mean Corpuscular Hemoglobin 31.1 pg (28.0-33.3); Mean Corpuscular Volume 92.5 fL (83.0-100.0); Mean Platelet Volume 8.9 fL (9.4-12.4); Platelet Count 476 K/mcL (140-400); Red Blood Count 4.27 M/mcL (4.19-5.50); White Blood Count 5.6 K/mcL (4.3-11.1)
[2020-01-03 06:12] LABS: BUN/Creatinine Ratio 21 (6-26); Blood Urea Nitrogen 13 mg/dL (8-23); Calcium 9.1 mg/dL (8.6-10.3); Carbon Dioxide 26 mEq/L (23-29); Chloride 104 mEq/L (98-107); Glucose 94 mg/dL (70-105); Magnesium 2.1 mg/dL (1.6-2.6); Osmolality,Calculated 286 (280-300); Phosphorous 3.7 mg/dL (2.7-4.5); Potassium 3.8 mEq/L (3.5-5.1); Sodium 138 mEq/L (136-145); eGFR For African Americans > 60 (> 60); eGFR For Non-African Americans > 60 (> 60)
[2020-01-03 06:15] LABS: Lactate Dehydrogenase 206 Units/L (140-271)
[2020-01-03 06:29] LABS: Ferritin 404 ng/mL (20-250)
[2020-01-03 08:34] LABS: C-Reactive Protein 45 mg/L (Less than 10)
[2020-01-03] MEDS: Gabapentin 400 MG CAPSULE PO SCH ×3 (09:41→20:18)
[2020-01-03] MEDS: Dexamethasone 4 MG/ML VIAL IVP SCH (09:41)
[2020-01-03] MEDS ORDERED: polyethylene glycoL 3350 17 GM POWD.PACK PO PRN (10:29)
[2020-01-03] MEDS ORDERED: Acetaminophen 325 MG TABLET PO PRN (10:43)
[2020-01-03] MEDS: *HR* HYDROcodone/Acet 5/325 mg TABLET PO PRN (17:59)
[2020-01-03] MEDS: CarBAMazepine XR (12 hr) 100 MG TAB PO SCH (20:18)
[2020-01-03] MEDS: clonazePAM 0.5 MG TABLET PO SCH (20:18)
[2020-01-04] MEDS: *HR* HYDROcodone/Acet 10/325 mg TABLET PO PRN ×2 (00:45→08:39)
[2020-01-04] MEDS: Ipratropium 1 PUFF INHALER IH SCH ×4 (03:47→21:31)
[2020-01-04] MEDS: *HR* Enoxaparin 40 MG/0.4 ML SYRINGE SQ SCH (04:50)
[2020-01-04 08:07] LABS: Hematocrit 40.3 % (37.5-50.1); Hemoglobin 13.6 g/dL (12.9-16.9); Mean Corpuscular HGB Conc 33.7 g/dL (31.6-35.5); Mean Corpuscular Hemoglobin 30.7 pg (28.0-33.3); Mean Platelet Volume 8.9 fL (9.4-12.4); Platelet Count 516 K/mcL (140-400); Red Blood Count 4.43 M/mcL (4.19-5.50); Red Cell Distribution Width 12.9 % (11.5-14.5); White Blood Count 7.4 K/mcL (4.3-11.1)
[2020-01-04 08:24] LABS: BUN/Creatinine Ratio 21 (6-26); Blood Urea Nitrogen 13 mg/dL (8-23); Calcium 9.1 mg/dL (8.6-10.3); Carbon Dioxide 27 mEq/L (23-29); Chloride 100 mEq/L (98-107); Glucose 87 mg/dL (70-105); Magnesium 2.1 mg/dL (1.6-2.6); Osmolality,Calculated 281 (280-300); Phosphorous 3.9 mg/dL (2.7-4.5); Potassium 3.8 mEq/L (3.5-5.1); Sodium 136 mEq/L (136-145); eGFR For African Americans > 60 (> 60); eGFR For Non-African Americans > 60 (> 60)
[2020-01-04] MEDS: Gabapentin 400 MG CAPSULE PO SCH ×3 (08:39→19:28)
[2020-01-04] MEDS: Dexamethasone 4 MG/ML VIAL IVP SCH (08:39)
[2020-01-04] MEDS: Morphine Sulfate 2 MG/ML SYRINGE IVP PRN ×2 (16:00→22:11)
[2020-01-04] MEDS: CarBAMazepine XR (12 hr) 100 MG TAB PO SCH (19:28)
[2020-01-04] MEDS: clonazePAM 0.5 MG TABLET PO SCH (19:28)
[2020-01-05] MEDS: Ipratropium 1 PUFF INHALER IH SCH ×4 (03:42→21:26)
[2020-01-05] MEDS: Morphine Sulfate 2 MG/ML SYRINGE IVP PRN ×3 (05:49→19:32)
[2020-01-05] MEDS: *HR* Enoxaparin 40 MG/0.4 ML SYRINGE SQ SCH (05:50)
[2020-01-05 06:26] LABS: Basophils # 0.1 K/mcL (0.0-0.2); Basophils % 0.8 %; Eosinophils # 0.1 K/mcL (0.0-0.6); Eosinophils % 1.4 %; Hematocrit 38.8 % (37.5-50.1); Hemoglobin 13.1 g/dL (12.9-16.9); Immature Granulocytes % 1.6 % (0-4); Lymphocytes % 27.3 %; Mean Corpuscular HGB Conc 33.8 g/dL (31.6-35.5); Mean Corpuscular Hemoglobin 30.6 pg (28.0-33.3); Mean Corpuscular Volume 90.7 fL (83.0-100.0); Mean Platelet Volume 8.9 fL (9.4-12.4); Monocytes # 1.1 K/mcL (0.0-1.3); Monocytes % 15.6 %; Neutrophils # 3.9 K/mcL (1.6-8.9); Platelet Count 517 K/mcL (140-400); Red Blood Count 4.28 M/mcL (4.19-5.50); Red Cell Distribution Width 12.9 % (11.5-14.5); Segmented Neutrophils % 53.3 %; White Blood Count 7.3 K/mcL (4.3-11.1)
[2020-01-05 06:48] LABS: BUN/Creatinine Ratio 25 (6-26); Blood Urea Nitrogen 13 mg/dL (8-23); Calcium 9.4 mg/dL (8.6-10.3); Carbon Dioxide 24 mEq/L (23-29); Chloride 101 mEq/L (98-107); Glucose 87 mg/dL (70-105); Lactate Dehydrogenase 198 Units/L (140-271); Osmolality,Calculated 279 (280-300); Potassium 3.7 mEq/L (3.5-5.1); Sodium 135 mEq/L (136-145); eGFR For African Americans > 60 (> 60); eGFR For Non-African Americans > 60 (> 60)
[2020-01-05 07:04] LABS: Ferritin 409 ng/mL (20-250)
[2020-01-05] MEDS: Gabapentin 400 MG CAPSULE PO SCH ×3 (08:22→19:31)
[2020-01-05] MEDS: Dexamethasone 4 MG/ML VIAL IVP SCH (08:23)
[2020-01-05 10:13] LABS: C-Reactive Protein 25 mg/L (Less than 10)
[2020-01-05] MEDS: clonazePAM 0.5 MG TABLET PO SCH (19:31)
[2020-01-05] MEDS: CarBAMazepine XR (12 hr) 100 MG TAB PO SCH (19:31)
[2020-01-06] MEDS: Ipratropium 1 PUFF INHALER IH SCH ×2 (03:24→11:32)
[2020-01-06] MEDS: *HR* Enoxaparin 40 MG/0.4 ML SYRINGE SQ SCH (05:26)
[2020-01-06] MEDS: Morphine Sulfate 2 MG/ML SYRINGE IVP PRN ×2 (05:26→11:30)
[2020-01-06 05:35] VITALS: BP 100/75
[2020-01-06] MEDS: Gabapentin 400 MG CAPSULE PO SCH (08:06)
== END 2020-01-06 15:08 | DRG 871 ==
LOC: 2NENU 09:08 → EMEROOARM 09:08 → SUATTDRO 12:46 → 2NENU 14:00 → SUATTDRO 12-27 10:53
PROVIDERS: ADMIT Pharmacist; ATTEND Family Medicine